=== PATIENT | female | born 1965 | race Caucasian/White ===

== ENCOUNTER 2017-08-24 11:59 | Emergency (ER) | payer OTHER ==
[~2017-08-24] VITALS: Ht 157.5 cm; Wt 70.3 kg
[~2017-08-24 11:59] MED LIST: SYNTHROID50 MCG; VISTARIL25 MG PO
== END 2017-08-24 14:59 | disposition home or self-care (01) ==
LOC: ER 11:59
DX: M25.562 Pain in left knee (principal)

== ENCOUNTER → 2024-09-12 | Outpatient (CLI) | payer OTHER | END | disposition home or self-care (01) | LOC: RAD 11:48 | PROVIDERS: ATTEND Surgery | DX: K59.00 Constipation, unspecified (principal) ==